=== PATIENT | male | born 1935 | race Caucasian/White ===

== ENCOUNTER 2018-11-06 16:38 | Inpatient (IN) | payer OTHER ==
[~2018-11-06] VITALS: Ht 180.3 cm; Wt 71.7 kg
[2018-11-06] MEDS ORDERED: LISI-186 MT (17:00)
[2018-11-06] MEDS ORDERED: DOCU-272 MT (17:00)
[2018-11-06] MEDS ORDERED: SYMBICORT (17:00)
[2018-11-06] MEDS ORDERED: OYSTER CALCIUM (17:00)
[2018-11-06] MEDS ORDERED: ATOR20TA65 MT (17:00)
[2018-11-06] MEDS ORDERED: DOXA2TAB2 MT (17:00)
[2018-11-06] MEDS ORDERED: ALBU18HF2 IH (17:00)
[2018-11-06] MEDS ORDERED: OMEP20CA10 MT (17:00)
[2018-11-06] MEDS ORDERED: AMLO10TA80 MT (17:00)
[2018-11-06] MEDS ORDERED: FAMOTIDINE 20MG/2ML VIAL IV ONE (17:30)
[2018-11-06 17:54] LABS: EOSINOPHILS % 0.6 % (0.0-5.0); HEMATOCRIT. 32.1 % (42.0-52.0); HEMOGLOBIN. 10.5 g/dL (14.0-18.0); LYMPHOCYTES % 27.5 % (20.0-50.0); MEAN CORPUSCULAR HEMOGLOBIN 26.4 pg (28.0-32.0); MEAN CORPUSCULAR VOLUME 81.1 fL (80.0-94.0); MEAN PLATELET VOLUME 7.1 fl (7.4-10.4); MONOCYTES % 8.7 % (2.0-8.0); NEUTROPHILS % 62.2 % (40.0-76.0); PLATELET 197 x1000/uL (130-400); RED BLOOD CELL COUNT 3.96 mill/uL (4.7-6.1)
[2018-11-06 18:01] LABS: CHLORIDE 111 mEq/L (98-107)
[2018-11-06 18:07] LABS: ETHANOL BLOOD < 10 mg/dL
[2018-11-06 18:18] LABS: D-DIMER 0.86 mg/L FEU (<0.50); PARTIAL THROMBOPLASTIN TIME 28.8 sec (23.4-31.0); PROTHROMBIN TIME 10.4 sec (9.1-11.1)
[2018-11-06] MEDS ORDERED: CLONIDINE 0.2MG TABLET PO ONE (19:30)
[2018-11-06 20:24] LABS: CLARITY URINE CLEAR (CLEAR); COLOR URINE YELLOW (YELLOW); KETONES URINE NEGATIVE (NEGATIVE); LEUKOCYTE ESTERASE URINE NEGATIVE (NEGATIVE); NITRITE URINE NEGATIVE (NEGATIVE); OCCULT BLOOD URINE NEGATIVE (NEGATIVE); PROTEIN URINE 2+ (NEGATIVE); SPECIFIC GRAVITY URINE 1.013 (1.005-1.030); UROBILINOGEN URINE 0.2 E.U./dL (0.2-1.0)
[2018-11-06 20:43] LABS: *AMPHETAMINES SCREEN URINE NEGATIVE (NEGATIVE); *BARBITURATES SCREEN URINE NEGATIVE (NEGATIVE); *BENZODIAZEPINES SCREEN URINE NEGATIVE (NEGATIVE); *COCAINE SCREEN URINE NEGATIVE (NEGATIVE); METHADONE URINE SCREEN NEGATIVE (NEGATIVE)
[2018-11-06 20:44] LABS: PHENCYCLIDINE URINE SCREEN NEGATIVE (NEGATIVE)
[2018-11-06 20:46] LABS: CANNABINOID URINE SCREEN NEGATIVE (NEGATIVE)
[2018-11-06 20:51] LABS: OPIATES URINE SCREEN NEGATIVE (NEGATIVE)
[2018-11-07] MEDS ORDERED: CLONIDINE 0.1MG TABLET PO PRN (01:30)
[2018-11-07] MEDS ORDERED: NA PHOS,M-B/NA PHOS,DI-BA ENEMA 118ML PR PRN (01:30)
[2018-11-07] MEDS ORDERED: HYDROCODONE/ACETAMINOPHEN 5/325MG TABLET PO PRN (01:30)
[2018-11-07] MEDS ORDERED: MORPHINE SULFATE 2 MG/ML CPJ (NOT FOR IM USE) IV PRN (01:30)
[2018-11-07] MEDS ORDERED: ACETAMINOPHEN 650MG/20.3ML UDC GT PRN (01:30)
[2018-11-07] MEDS ORDERED: GUAIFENESIN 200MG/10ML SUGAR FREE UDC PO PRN (01:30)
[2018-11-07] MEDS ORDERED: ACETAMINOPHEN 325MG TABLET PO PRN (01:30)
[2018-11-07] MEDS ORDERED: DOCUSATE SODIUM 100MG CAPSULE PO PRN (01:30)
[2018-11-07] MEDS ORDERED: ACETAMINOPHEN 650MG SUPP PR PRN (01:30)
[2018-11-07] MEDS ORDERED: MAGNESIUM/ALUMINUM HYDROXIDE/SIMETHICONE 30ML UDC PO PRN (01:30)
[2018-11-07] MEDS ORDERED: DIPHENHYDRAMINE 50MG/ML VIAL IV PRN (01:30)
[2018-11-07] MEDS ORDERED: IPRATROPIUM/ALBUTEROL 0.5-3(2.5)MG/3ML NEB INH PRN (01:30)
[2018-11-07] MEDS: SODIUM CHLORIDE 0.9% INJ 3ML FLUSH IVF SCH ×3 (06:00→21:26)
[2018-11-07 06:49] LABS: BASOPHILS % 1.5 % (0.0-2.0); EOSINOPHILS % 2.2 % (0.0-5.0); HEMATOCRIT. 32.8 % (42.0-52.0); HEMOGLOBIN. 10.6 g/dL (14.0-18.0); LYMPHOCYTES % 31.2 % (20.0-50.0); MEAN CORPUSCULAR HEMOGLOBIN 26.4 pg (28.0-32.0); MEAN CORPUSCULAR VOLUME 81.9 fL (80.0-94.0); MEAN PLATELET VOLUME 7.3 fl (7.4-10.4); NEUTROPHILS % 52.1 % (40.0-76.0); PLATELET 186 x1000/uL (130-400); RED BLOOD CELL COUNT 4.01 mill/uL (4.7-6.1)
[2018-11-07 06:55] LABS: CHLORIDE 109 mEq/L (98-107)
[2018-11-07 07:02] LABS: LDL CHOLESTEROL 52 mg/dL (5-100)
[2018-11-07 07:03] LABS: HDL CHOLESTEROL 73 mg/dL (40-59)
[2018-11-07 08:00] VITALS: BP 148/61
[2018-11-07 08:30] VITALS: BP 148/61
[2018-11-07] MEDS ORDERED: AMLODIPINE 5MG TABLET PO SCH (09:00)
[2018-11-07] MEDS ORDERED: DEXTROSE 50% WATER 50ML SYRINGE IV PRN (09:30)
[2018-11-07] MEDS ORDERED: ALBUTEROL 6.7GM HFA INHALER ORI PRN (09:30)
[2018-11-07] MEDS ORDERED: ALBUTEROL (0.083%) 2.5MG/3ML NEB HHN PRN (09:45)
[2018-11-07] MEDS: ATORVASTATIN CALCIUM 20MG TABLET PO SCH (10:02)
[2018-11-07] MEDS: DOXAZOSIN MESYLATE 2MG TABLET PO SCH (10:03)
[2018-11-07] MEDS: AMLODIPINE 10MG TABLET PO SCH (10:03)
[2018-11-07] MEDS: OMEPRAZOLE 20MG CAPSULE EXTENDED RELEASE PO SCH (10:04)
[2018-11-07] MEDS: ENOXAPARIN 40MG/0.4ML SYR SUBCUT SCH (10:04)
[2018-11-07 12:00] VITALS: BP 126/66
[2018-11-07] MEDS ORDERED: BUDESONIDE 0.5MG/2ML NEB HHN SCH (12:00)
[2018-11-07] MEDS: ALBUTEROL (0.083%) 2.5MG/3ML NEB HHN SCH ×3 (12:16→21:17)
[2018-11-07] MEDS: BLOOD SUGAR DIAGNOSTIC STRIP TEST SCH ×3 (12:40→21:26)
[2018-11-07] MEDS: INSULIN LISPRO 100 UNITS/ML SUBCUT SCH ×3 (13:23→21:00)
[2018-11-07 20:00] VITALS: BP 141/75
[2018-11-08] VITALS: BP 103/61
[2018-11-08] MEDS: ALBUTEROL (0.083%) 2.5MG/3ML NEB HHN SCH ×2 (02:00→06:00)
[2018-11-08 04:00] VITALS: BP 134/55
[2018-11-08] MEDS: BLOOD SUGAR DIAGNOSTIC STRIP TEST SCH ×2 (05:23→12:21)
[2018-11-08] MEDS: SODIUM CHLORIDE 0.9% INJ 3ML FLUSH IVF SCH (05:23)
[2018-11-08] MEDS: OMEPRAZOLE 20MG CAPSULE EXTENDED RELEASE PO SCH (07:40)
[2018-11-08] MEDS: INSULIN LISPRO 100 UNITS/ML SUBCUT SCH ×2 (08:10→13:10)
[2018-11-08 08:47] VITALS: BP 154/67
[2018-11-08] MEDS: ATORVASTATIN CALCIUM 20MG TABLET PO SCH (09:00)
[2018-11-08] MEDS: DOXAZOSIN MESYLATE 2MG TABLET PO SCH (09:00)
[2018-11-08] MEDS: ENOXAPARIN 40MG/0.4ML SYR SUBCUT SCH (09:00)
[2018-11-08] MEDS: AMLODIPINE 10MG TABLET PO SCH (09:00)
[2018-11-08] MEDS ORDERED: REGADENOSON 0.4 MG/5 ML IV NR (09:15)
[2018-11-08] MEDS ORDERED: CAFFEINE CITRATE 20MG/ML 3ML VIAL IV ONE (09:32)
[2018-11-08] MEDS ORDERED: REGADENOSON 0.4 MG/5 ML IV ONE (09:32)
[2018-11-08 10:02] LABS: VITAMIN B12 SERUM 376 pg/mL (211-911)
[2018-11-08 11:31] LABS: T4 FREE 0.83 ng/dL (0.76-1.46)
[2018-11-08 12:00] VITALS: BP 159/58
[2018-11-08 13:25] VITALS: BP 150/59
[2018-11-08 15:57] LABS: CREATINE KINASE MB FRACTION 1.8 ng/mL (0.5-3.6)
== END 2018-11-08 15:58 | disposition home or self-care (01) | DRG 192 ==
LOC: ER 16:38 → EDBD 16:38 → 7WST 20:05 → CANRESERV 22:07 → ENRESERV 22:07
PROVIDERS: ADMIT Family Medicine; ATTEND Family Medicine
DX: J44.1 Chronic obstructive pulmonary disease with (acute) exacerbation (principal); D64.9 Anemia, unspecified; I12.9 Hypertensive chronic kidney disease with stage 1 through stage 4 chronic kidney disease, or unspecified chronic kidney disease; K21.9 Gastro-esophageal reflux disease without esophagitis; R07.9 Chest pain, unspecified; G25.0 Essential tremor; M19.90 Unspecified osteoarthritis, unspecified site; N18.9 Chronic kidney disease, unspecified; N40.0 Benign prostatic hyperplasia without lower urinary tract symptoms; K59.09 Other constipation; Z79.899 Other long term (current) drug therapy
CPT/HCPCS: 36415; 71045; 78452; 78582; 80061; 80305; 82550; 82553; 82607; 82962; 83036; 83880; 84439; 84443; 84484; 85379; 93005; 93017; 93306; 96374; 99285; A9500; A9558; G0482; J0706; J1200; J1650; J1815; J2785; J3490; J7611; J7626